=== PATIENT | female | born 1995 | race Caucasian/White ===

== ENCOUNTER 2019-01-14 20:04 | Emergency (ER) | payer OTHER ==
[~2019-01-14] VITALS: Ht 157.5 cm; Wt 59.0 kg
== END 2019-01-14 22:44 | disposition home or self-care (01) ==
LOC: ER 20:04
DX: B34.9 Viral infection, unspecified (principal); J11.1 Influenza due to unidentified influenza virus with other respiratory manifestations

== ENCOUNTER 2020-11-16 11:31 | Emergency (ER) | payer OTHER ==
[~2020-11-16] VITALS: Ht 162.6 cm; Wt 54.9 kg
== END 2020-11-16 15:58 | disposition home or self-care (01) ==
LOC: ER 11:31
DX: O26.891 Other specified pregnancy related conditions, first trimester (principal); K59.09 Other constipation; Z34.01 Encounter for supervision of normal first pregnancy, first trimester

== ENCOUNTER 2021-05-24 12:15 | Inpatient (IN) | payer OTHER ==
[~2021-05-24] VITALS: Ht 162.6 cm; Wt 65.8 kg
[2021-05-26] MEDS ORDERED: DIALYVITE 800-1 EACH PO (06:40)
[2021-05-26] MEDS ORDERED: ADULT LOW DOSE81 M1 PO (06:40)
[2021-05-27] MEDS ORDERED: FOLIC ACID1 MG (08:17)
== END 2021-05-28 12:31 | disposition home or self-care (01) | DRG 807 ==
LOC: EDBD 05-26 06:35 → OB/GYN 05-26 06:35 → LDR 05-26 06:35 → OB/GYN 05-26 12:48 → SURH 06-04 12:15
PROVIDERS: ADMIT Specialist; ATTEND Specialist
PROC: 10E0XZZ Delivery of Products of Conception, External Approach (ICD-10-PCS; principal; 2021-05-26)
PROC: 0HQ9XZZ Repair Perineum Skin, External Approach (ICD-10-PCS; 2021-05-26)
PROC: 10907ZC Drainage of Amniotic Fluid, Therapeutic from Products of Conception, Via Natural or Artificial Opening (ICD-10-PCS; 2021-05-26)
PROC: 4A1HXFZ Monitoring of Products of Conception, Cardiac Rhythm, External Approach (ICD-10-PCS; 2021-05-26)
DX: O70.0 First degree perineal laceration during delivery (principal); O90.81 Anemia of the puerperium; D64.9 Anemia, unspecified; Z37.0 Single live birth; Z3A.38 38 weeks gestation of pregnancy